=== PATIENT | male | born 1940 | race Caucasian/White ===

== ENCOUNTER 2019-08-18 18:28 | Observation (INO) ==
[2019-08-18] MEDS ORDERED: HYDROmorphone 0.5 MG/0.5 ML SYRINGE IV PRN (18:35)
[2019-08-18] MEDS ORDERED: ONDANSETRON 4 MG/2 ML VIAL IV ONE (18:35)
[2019-08-18] MEDS ORDERED: 0.9 % SODIUM CHLORIDE 1,000 ML IV ONE (18:35)
--- NOTE | 2019-08-18 18:36 | Emergency Department Note ---
Abdominal Pain HPI - General Chief Complaint: Abdominal Pain Stated Complaint: abdominal pain Time Seen by Provider: 08/18/19 18:34 Source: patient Mode of arrival: ambulatory Limitations: no limitations - History of Present Illness HPI Narrative: 79-year-old male with a 4-hour history of right lower quadrant pain that came on about 230 this afternoon. No fever or shortness of breath. It felt like he did have a bowel movement but this did not relieve his pain. He still has his appendix. Pain is severe - Related Data Home Medications Medication Instructions Recorded Confirmed acetaminophen 325 mg tablet 325 mg PO Q6H PRN 04/01/18 03/01/19 blood sugar diagnostic See Dose Instructions .ROUTE 04/01/18 03/01/19 .MEDSUPPLY #10 each losartan 100 1 tab PO QDAY 04/01/18 03/01/19 mg-hydrochlorothiazide 25 mg tablet pen needle, diabetic 32 gauge x See Dose Instructions .ROUTE 04/01/18 03/01/19 5/32" .MEDSUPPLY #10 each pravastatin 20 mg tablet 20 mg PO QDAY 04/01/18 03/01/19 insulin glargine 100 unit/mL (3 18 unit SUB-Q QPM ml 08/24/18 03/01/19 mL) subcutaneous pen Previous Rx's Medication Instructions Recorded sildenafil 100 mg tablet 100 mg PO ONCE #7 tab 04/15/18 oxybutynin chloride 5 mg tablet 5 mg PO .Nightly #90 tab 03/01/19 tamsulosin 0.4 mg capsule 0.4 mg PO QDAY #90 cap 03/01/19 Allergies Allergy/AdvReac Type Severity Reaction Status Date / Time No Known Drug Allergies Allergy Verified 08/18/19 18:31 Review of Systems All systems ED: reviewed and negative except as stated. Abdominal Pain PMH - Past Medical History Attestation: Yes: The following information was validated with the patient. [facility] Narrative: Family History (Last Reviewed 03/01/19 @ 13:10 by Nancy Stringer RN) Son Alcohol abuse Mother Cerebrovascular accident (CVA) Hypothyroidism Grandmother Cerebrovascular accident (CVA) Medical History (Last Reviewed 03/01/19 @ 13:10 by Nancy Stringer RN) Cold intolerance (Chronic) Nocturia (Chronic) High cholesterol (Chronic) Degeneration of lumbar intervertebral disc (Chronic) Psoriasis (Chronic) Peptic ulcer without hemorrhage, perforation, or obstruction (Chronic) Essential hypertension (Chronic) Hyperlipidemia (Chronic) Diabetes mellitus (Chronic) Decreased urine stream (Chronic) Enlarged prostate (Chronic) 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 Normocephalic atraumatic. Conjunctive are clear sclerae white nonicteric. No nasal discharge or congestion. Oropharynx pink and moist. Neck is supple without lymphadenopathy or thyromegaly. Heart is regular rate and rhythm no murmur appreciated. Lungs clear to auscultation bilaterally without wheezes rales rhonchi or respiratory distress. Abdomen is soft tender in the right lower quadrant at McBurney's point. Mildly distended. No guarding. No pedal edema. Alert oriented Limitations: no limitations Course Vital Signs Temperature 98.0 F 08/18/19 18:28 Temperature 98.0 F 08/18/19 18:28 Pulse Rate 64 08/18/19 20:22 Blood Pressure 148/73 08/18/19 20:22 Pulse Oximetry (%) 92 08/18/19 20:22 Abdominal Pain - Lab Data Lab results reviewed: Yes I reviewed the patient's lab results. Result diagrams: 08/18/19 18:44 08/18/19 18:44 Lab Results 08/18/19 08/18/19 08/18/19 Range/Units 18:44 18:44 18:44 WBC 12.7 H (4.50-11.00) K/mcL RBC 4.47 L (4.63-6.08) M/mcL Hgb 13.6 L (13.7-17.5) g/dL Hct 40.1 (40.1-51.0) % POC Hct 41.0 (41.0-55.0) % MCV 89.7 (80.0-100.0) fL MCH 30.4 (26.0-34.0) pg MCHC 33.9 (31.0-36.0) g/dL RDW 13.0 (11.5-14.5) % Plt Count 264 (140-440) K/mcL MPV 10.4 (7.4-10.4) fL Gran % 82.8 H (38.0-78.0) % Lymph % (Auto) 10.8 L (15.5-49.0) % [place] % (Auto) 4.9 (1.0-12.0) % Eos % (Auto) 1.1 (0.0-7.0) % Baso % (Auto) 0.4 (0.0-2.0) % Gran # 10.53 H (1.80-8.00) K/mcL Lymph # (Auto) 1.38 L (1.50-4.80) K/mcL [place] # (Auto) 0.62 (0.10-0.90) K/mcL Eos # (Auto) 0.14 (0.00-0.70) K/mcL Baso # (Auto) 0.05 (0.00-0.30) K/mcL VBG Lactic Acid 1.0 (0.5-2.0) mmol/L POC Sodium 138 (133-145) mmol/L Sodium 136 (133-145) mmol/L POC Potassium 4.3 (3.3-5.1) mmol/L Potassium 4.4 (3.3-5.1) mmol/L POC Chloride 105 (96-108) mmol/L Chloride 99 (96-108) mmol/L Carbon Dioxide 20 L (22-30) mmol/L POC Total CO2 23 (22-30) mmol/L Anion Gap 17.0 H (8-16) POC BUN 31 H (8-23) mg/dl BUN 31 H (8-23) mg/dl Creatinine 1.8 H (0.7-1.2) mg/dl POC Creatinine 2.0 H (0.7-1.2) mg/dl GFR Calculation 35 Glucose 172 H (70-105) mg/dL POC Glucose 173 H (70-105) mg/dL Calcium 9.4 (8.6-10.4) mg/dl POC WB Ioniz Calcium 1.15 L (1.16-1.32) mmol/L Total Bilirubin 0.2 (0.0-1.0) mg/dL AST 22 (0-37) U/l ALT 19 (0-40) U/l Alkaline Phosphatase 56 (39-117) U/L Total Protein 7.3 (5.9-8.4) gm/dL Albumin 4.4 (3.2-5.2) gm/dL Globulin 2.9 (2.2-3.7) gm/dL Albumin/Globulin Ratio 1.5 (1.0-2.3) Lipase 21 (7-60) U/L - Radiology Data Radiology results reviewed: Yes I reviewed the patient's radiology results. CT scan showed mild to moderate right hydroureter with perinephric stranding. There is a 7 x 4 mm proximal ureteral stone as well as bilateral nephro lithiasis. His appendix shows fecal reflux but no stranding to indicate inflammation Disposition Pt seen by [employer]/PA only: No Clinical Impression: Ureterolithiasis, Pyelonephritis Summary: Concern for appendicitis versus diverticulitis versus other intra-abdominal pathology. Ordered CT scan and laboratory. Start IV fluids Dilaudid and Zofran. POC creatinine was too high and we had to change his CT scan of the abdomen pelvis with contrast to without contrast His creatinine went from 1.2 at baseline to 1.8. He does have a leukocytosis of 12. CT scan of the abdomen pelvis without contrast shows pyelonephritis with perinephric stranding on the right as well as ureteral lithiasis which is likely the cause. This is relatively large at 7 x 4 mm. He is afebrile but still uncomfortable despite getting Dilaudid I discussed the case with Dr. Deon Evans, the patient's urologist whom he sees for prostate-I also discussed the results of studies with the patient. B ecause of this large ureteral stone with acute renal failure/pyelonephritis and difficulty to control his pain I do think that he will require admission and procedural intervention. Dr. Evans agreed and asked me to go ahead and write holding orders and he would plan on intervening on the patient's behalf first thing in the morning. So I wrote transition orders on behalf of Dr. Evans including 500 mg of Levaquin as a one-time dose. Patient will be admitted to Dr. Evans Disposition: Xfer As Inpt ([facility]) Condition: Fair Referrals: Ryan Chavez PA-C [Primary Care Provider] - Deon Evans MD [Physician] -
[2019-08-18 18:53] LABS: POC Blood Urea Nitrogen 31 mg/dl (8-23); POC CO2 23 mmol/L (22-30); POC Calcium, Ionized 1.15 mmol/L (1.16-1.32); POC Chloride 105 mmol/L (96-108); POC Glucose, Random 173 mg/dL (70-105); POC Potassium 4.3 mmol/L (3.3-5.1); POC Sodium 138 mmol/L (133-145)
[2019-08-18] MEDS: HYDROmorphone* 2 MG/ML VIAL IV PRN ×3 (19:18→20:55)
[2019-08-18 19:29] LABS: Basophils # (Auto) 0.05 K/mcL (0.00-0.30); Basophils % (Auto) 0.4 % (0.0-2.0); Eosinophils # (Auto) 0.14 K/mcL (0.00-0.70); Eosinophils % (Auto) 1.1 % (0.0-7.0); Granulocytes % (Auto) 82.8 % (38.0-78.0); Hematocrit 40.1 % (40.1-51.0); Hemoglobin 13.6 g/dL (13.7-17.5); Lymphocytes # (Auto) 1.38 K/mcL (1.50-4.80); Lymphocytes % (Auto) 10.8 % (15.5-49.0); Mean Cell Volume 89.7 fL (80.0-100.0); Mean Corpuscular HGB Conc 33.9 g/dL (31.0-36.0); Mean Platelet Volume 10.4 fL (7.4-10.4); Monocytes # (Auto) 0.62 K/mcL (0.10-0.90); Monocytes % (Auto) 4.9 % (1.0-12.0); Platelet Count 264 K/mcL (140-440); RBC 4.47 M/mcL (4.63-6.08); WBC 12.7 K/mcL (4.50-11.00)
[2019-08-18 19:50] LABS: ALT/SGPT 19 U/l (0-40); AST/SGOT 22 U/l (0-37); Albumin 4.4 gm/dL (3.2-5.2); Albumin/Globulin Ratio 1.5 (1.0-2.3); Alkaline Phosphatase 56 U/L (39-117); Bilirubin,Total 0.2 mg/dL (0.0-1.0); Blood Urea Nitrogen 31 mg/dl (8-23); Calcium 9.4 mg/dl (8.6-10.4); Carbon Dioxide 20 mmol/L (22-30); Chloride 99 mmol/L (96-108); Globulin 2.9 gm/dL (2.2-3.7); Glomerular Filtration Rate 35; Glucose 172 mg/dL (70-105)
[2019-08-18] MEDS ORDERED: NALOXONE HCL 0.4 MG/ML VIAL IV PRN (20:24)
[2019-08-18] MEDS ORDERED: LEVOFLOXACIN 500 MG/100 ML BAG IV ONE (20:24)
[2019-08-18] MEDS ORDERED: PROMETHAZINE 25 MG/ML VIAL IM PRN (20:24)
[2019-08-18] MEDS ORDERED: INSULIN GLARGINE, HUMAN 1 UNIT/0.01 ML SQ ONE (20:33)
[2019-08-18] MEDS ORDERED: DEXTROSE 31 GM ORAL.SUSP PO PRN (22:02)
[2019-08-18] MEDS ORDERED: DEXTROSE 50% 50 ML VIAL IV PRN (22:02)
[2019-08-18] MEDS: 0.9 % SODIUM CHLORIDE 1,000 ML IV SCH (22:28)
[2019-08-18] MEDS: INSULIN LISPRO 1 UNIT/0.01 ML UNIT SQ SCH (22:53)
[2019-08-18] MEDS: ONDANSETRON 4 MG/2 ML VIAL IV PRN (23:19)
[2019-08-19] MEDS: ONDANSETRON 4 MG/2 ML VIAL IV PRN ×2 (03:12→08:30)
[2019-08-19 06:46] LABS: Basophils # (Auto) 0.05 K/mcL (0.00-0.30); Basophils % (Auto) 0.3 % (0.0-2.0); Eosinophils # (Auto) 0.01 K/mcL (0.00-0.70); Eosinophils % (Auto) 0.1 % (0.0-7.0); Granulocytes % (Auto) 83.5 % (38.0-78.0); Hematocrit 39.7 % (40.1-51.0); Lymphocytes # (Auto) 1.27 K/mcL (1.50-4.80); Lymphocytes % (Auto) 7.7 % (15.5-49.0); Mean Cell Volume 90.8 fL (80.0-100.0); Mean Corpuscular HGB Conc 32.7 g/dL (31.0-36.0); Mean Platelet Volume 10.4 fL (7.4-10.4); Monocytes # (Auto) 1.39 K/mcL (0.10-0.90); Monocytes % (Auto) 8.4 % (1.0-12.0); Platelet Count 279 K/mcL (140-440); RBC 4.37 M/mcL (4.63-6.08); WBC 16.5 K/mcL (4.50-11.00)
[2019-08-19 06:52] LABS: ALT/SGPT 16 U/l (0-40); AST/SGOT 27 U/l (0-37); Albumin/Globulin Ratio 1.5 (1.0-2.3); Alkaline Phosphatase 42 U/L (39-117); Bilirubin,Total 0.3 mg/dL (0.0-1.0); Blood Urea Nitrogen 28 mg/dl (8-23); Calcium 8.7 mg/dl (8.6-10.4); Carbon Dioxide 24 mmol/L (22-30); Chloride 100 mmol/L (96-108); Globulin 2.6 gm/dL (2.2-3.7); Glomerular Filtration Rate 27; Glucose 149 mg/dL (70-105)
--- NOTE | 2019-08-19 07:08 | Cat Scan Report ---
CLINICAL INFORMATION: Right lower quadrant pain COMPARISON: None. TECHNIQUE: 0.625 mm helical slices were obtained from the mid heart through the subtrochanteric regions. Following reconstruction, 2.5 mm sagittal, coronal and axial reformatted images were processed and reviewed at bone and soft tissue windows.The exam was performed using radiation dose optimization techniques including, but not limited to, automated exposure control, adjustment of the mA and/or kV according to patient size and use of iterative reconstruction technique. FINDINGS: A 4 x 3 mm bilobed stone in the mid right ureter results in mild right hydroureter/hydronephrosis and perinephric edema. A few tiny nonobstructing stones within the calyces of both kidneys. Scattered simple cysts also appreciated: 17 mm anterior cortex superior pole right kidney and 2.3 cm mid left kidney. The left upper collecting system, ureter and urinary bladder are unremarkable. Prostate is mildly enlarged with slight asymmetric prominence the right peripheral zone Lung bases show subsegmental atelectasis no effusion. Small hiatal hernia appreciated. The visualized heart is normal in size Abdominal images show the noncontrasted gallbladder and bile ducts, liver, both adrenal glands, spleen, pancreas are normal in size configuration and attenuation without focal lesion. The aorta is riddled with fibrofatty calcific plaque. The lack in the left common iliac origin is suggestive of significant stenosis in this region, but this cannot be spine without IV contrast. There is no free air, free fluid or adenopathy. Scattered sigmoid diverticula appreciated, but no evidence of diverticulitis. The remaining colon, appendix, small bowel and stomach are normal. The bone windows show no focal osseous abnormality IMPRESSION: 1. 4 mm stone in the mid right ureter resulting in mild right hydroureter/hydronephrosis. Few small punctate nonobstructing stones in the calyces of both kidneys. 2. Heavy atherotic plaque in the abdominal aorta and branches. Possible stenosis of the left common iliac artery please correlate asymmetric femoral pulses and left leg claudication. 3. 2.3 cm simple cyst mid left kidney and 1.7 cm simple cyst anterior cortex superior pole right kidney. 4. Small hiatal hernia Interpreted and Authenticated by: Keith Mazariegos 08/19/19
[2019-08-19] MEDS ORDERED: ceFAZolin 2 GM in DEXTROSE 5% IN WATER 50 ML IV SCH (07:30)
--- NOTE | 2019-08-19 07:34 | History and Physical Report ---
DATE OF ADMISSION: 08/18/2019 HISTORY OF PRESENT ILLNESS: The patient is a 79-year-old gentleman who came into the hospital yesterday with severe right flank pain. He denied fevers or chills but felt constipated and also felt urgency and frequency of urination. I have seen him in the past in the office for frequency and urgency. He is on Flomax and oxybutynin. A CT scan was obtained which showed a right-sided ureteral stone. This is mid ureter approximately 7 mm in size. He had bumped his creatinine and his white count also had increased. He is diabetic. He presents now for evaluation. ALLERGIES: None. CURRENT MEDICATIONS: 1. Viagra. 2. Oxybutynin. 3. Tamsulosin. PAST MEDICAL HISTORY: Significant for diabetes, hypertension, hyperlipidemia, nocturia. FAMILY HISTORY: CVA. PAST SURGICAL HISTORY: Adenoidectomy and tonsillectomy. SOCIAL HISTORY: Does not smoke, does not drink. REVIEW OF SYSTEMS: CARDIAC: Denies any chest pain. RESPIRATORY: No wheezing, coughing, or asthma. PSYCHOLOGICAL: No depression or mood swings. The rest of a 12-point review of systems is negative. PHYSICAL EXAMINATION: GENERAL: This is a pleasant gentleman in slight distress. VITAL SIGNS: As listed per intake notes. HEENT: Atraumatic, normocephalic. Extraocular movements are intact. Pupils equal, reactive to light and accommodation. NECK: Supple. Trachea is in the midline. HEART: Regular rate and rhythm. LUNGS: Clear to auscultation. ABDOMEN: Soft, obese, right flank tenderness which extends down to the groin. GENITOURINARY: Scrotum without lesion. No hydrocele, no varicocele. Testicles are in their normal position, normal size and consistency. No hernias are appreciated. Meatus is at the end of his penis. Penis is circumcised without plaques. EXTREMITIES: Without clubbing, cyanosis or edema. NEUROLOGIC: Cranial nerves II-XII intact. IMPRESSION: The patient with a midright ureteral stone who is having pain. He has also increased his creatinine. PLAN: I have talked to him about the options and we will schedule him for surgery today. I have gone over the procedure with him and options including ureteroscopy, watchful waiting, and open nephrolithotomy, and he understands. A full PARQ discussion was held and we will plan to follow up at surgery. He will receive preoperative antibiotics. [email or web address] Job ID: [id number] Doc ID: [id number] Deon Evans MD
[2019-08-19] MEDS: INSULIN LISPRO 1 UNIT/0.01 ML UNIT SQ SCH ×2 (08:30→11:30)
[2019-08-19] MEDS: 0.9 % SODIUM CHLORIDE 1,000 ML IV SCH (10:23)
[2019-08-19] MEDS ORDERED: LACTATED RINGERS 250 ML IV PRN (10:25)
[2019-08-19] MEDS ORDERED: BENZOCAINE/MENTHOL 1 LOZENGE PO PRN (10:25)
[2019-08-19] MEDS ORDERED: IPRATROPIUM/ALBUTEROL 3 ML AMPUL.NEB NEB PRN (10:25)
[2019-08-19] MEDS ORDERED: MEPERIDINE 25 MG/ML SYRINGE IV PRN (10:25)
[2019-08-19] MEDS ORDERED: FLUMAZENIL 0.1 MG/ML ML IV PRN (10:25)
[2019-08-19] MEDS ORDERED: METOPROLOL TARTRATE 5 MG/5 ML VIAL IV PRN (10:25)
[2019-08-19] MEDS ORDERED: NALOXONE HCL 0.4 MG/ML VIAL IV PRN (10:25)
[2019-08-19] MEDS ORDERED: LABETALOL 5 MG/ML ML IV PRN (10:25)
[2019-08-19] MEDS ORDERED: METHOCARBAMOL 1,000 MG/10 ML VIAL IV PRN (10:25)
[2019-08-19] MEDS ORDERED: ACETAMINOPHEN 1,000 MG/100 ML BOTTLE IV ONE (10:25)
[2019-08-19] MEDS ORDERED: fentaNYL 100 MCG/2 ML VIAL IV PRN (10:25)
[2019-08-19] MEDS ORDERED: LACTATED RINGERS 1,000 ML IV SCH (10:30)
[2019-08-19] MEDS ORDERED: LIDOCAINE HCL/PF 100 MG/5 ML SYRINGE IV ONE (10:42)
[2019-08-19] MEDS ORDERED: PROPOFOL 200 MG/20 ML VIAL IV ONE (10:42)
[2019-08-19] MEDS ORDERED: HYDROmorphone 1 MG/ML SYRINGE ONE (10:42)
[2019-08-19] MEDS ORDERED: fentaNYL 100 MCG/2 ML VIAL IV ONE (10:42)
[2019-08-19] MEDS ORDERED: DEXAMETHASONE 10 MG/ML VIAL ONE (10:42)
[2019-08-19] MEDS ORDERED: PROMETHAZINE 25 MG/ML VIAL ONE (10:42)
[2019-08-19] MEDS ORDERED: GLYCOPYRROLATE 0.2 MG/ML VIAL IV ONE (10:42)
[2019-08-19] MEDS ORDERED: ONDANSETRON 4 MG/2 ML VIAL ONE (10:42)
[2019-08-19] MEDS ORDERED: KETAMINE 10 MG/ML ML ONE (10:42)
[2019-08-19] MEDS ORDERED: FAMOTIDINE/PF 20 MG/2 ML VIAL IV ONE (10:42)
[2019-08-19] MEDS ORDERED: IOHEXOL 300 10 ML VIAL IV ONE (11:04)
[2019-08-19] MEDS ORDERED: HYDROmorphone 1 MG/ML SYRINGE IV PRN (11:16)
[2019-08-19] MEDS ORDERED: oxyCODONE/APAP 5/325MG TABLET PO PRN (11:16)
[2019-08-19] MEDS ORDERED: ACETAMINOPHEN 325 MG TABLET PO PRN (11:18)
[2019-08-19] MEDS ORDERED: NON FORMULARY MEDICATION 1 DOSE MISCELL (Sildenafil Citrate [Viagra] 100 MG) PO PRN (11:18)
--- NOTE | 2019-08-19 11:22 | Brief Operative Note ---
Date of procedure: 08/19/19 Pre-op diagnosis: right ureteral stone Post-op diagnosis: same Procedure: right ureteroscopy, stent placement Grafts/Implants: Yes (stent) Anesthesia: GLMA Findings: see note Complications: none Surgeon: Deon Evans Specimens Removed/Pathology: none sent Condition: stable Disposition: PACU
--- NOTE | 2019-08-19 11:23 | Discharge Plan ---
Discharge Plan - Patient/Caregiver Discharge Instructions Activity: increase activity as tolerated Diet: Regular Diet Additional Instructions: resume previous meds Prescriptions: Cephalexin [Keflex] 500 mg PO BID #10 cap Transmission Status: Pending to [facility] oxyCODONE/APAP [Percocet 10-325Mg] 1 tab PO Q4-6HP PRN #30 tablet PRN Reason: Pain Level > 6 Transmission Status: Sent to [facility] - Follow up Plan Follow up with: Ryan Chavez PAZitaC [Primary Care Provider] - Deon Evans MD [Physician] - Disposition: Home, Self-Care Prognosis: Good Rehab Potential: Good Overall status at discharge: patient is back to baseline
--- NOTE | 2019-08-19 11:51 | Operative Note ---
DATE OF OPERATION: 08/19/2019 PREOPERATIVE DIAGNOSIS: Right ureteral stone. POSTOPERATIVE DIAGNOSIS: Right ureteral stone. PROCEDURE: Right ureteroscopy and right stent placement. SURGEON: Deon Evans MD INDICATION: The patient is a 79-year-old gentleman who had sudden onset of right flank pain. His creatinine has been up and he does have an obstruction of the right kidney. He presents now for evaluation. PROCEDURE IN DETAIL: The patient was identified and consent was signed. He was given general anesthesia, placed in lithotomy position, prepped and draped in a standard fashion. Cystourethroscopy was performed and showed normal-appearing urethra. He did have a slightly enlarged prostate. Orifices were in their normal position. No tumors or masses were seen. We were able to cannulate the right orifice with a guidewire and passed this up the kidney without difficulty. We then attempted to do a semi-rigid ureteroscopy and had difficulty cannulating the orifice because of spasms. A dual lumen catheter was then placed and that facilitated passage up to the kidney, up to the level of stone. This was at approximately L3. We could not pass by the stone because of spasms and I was afraid of perforation. Therefore, a Super Stiff wire was then placed and a 6 x 26 stent was then placed using the Seldinger technique. This showed a good curl in the kidney and the bladder. The wires were removed. At no time did we perforate the ureter. The decision was made to stop the operation and let the stent cause dilatation of the ureter. His bladder was drained. He was awoken and taken to the recovery room in stable condition. He tolerated the procedure well. [email or web address] Job ID: [id number] Doc ID: [id number] Deon Evans MD
[2019-08-19] MEDS ORDERED: 0.9 % SODIUM CHLORIDE 10 ML SYRINGE IV SCH (14:00)
--- NOTE | 2019-08-19 14:57 | XRay Report ---
CLINICAL INFORMATION: URETEROSCOPY. Four large stone in the mid right ureter on recent CT COMPARISON: Abdomen and pelvic CT 08/18/2019 FINDINGS: Four digital images are submitted from the OR. These show partial opacification of the right upper collecting system. Stone not visualized on these images. A double pigtail ureteral stent was placed IMPRESSION: Placement of double pigtail ureteral stent and probable removal of a 4 mm mid ureteral stone Interpreted and Authenticated by: Keith Mazariegos 08/19/19
[2019-08-19] MEDS ORDERED: OXYBUTYNIN CHLORIDE 5 MG TABLET PO SCH (21:00)
[2019-08-19] MEDS ORDERED: SIMVASTATIN 10 MG TABLET PO SCH (21:00)
[2019-08-19] MEDS ORDERED: INSULIN GLARGINE, HUMAN 1 UNIT/0.01 ML SQ SCH (21:00)
[2019-08-20] MEDS ORDERED: HYDROCHLOROTHIAZIDE 25 MG TABLET PO SCH (09:00)
[2019-08-20] MEDS ORDERED: TAMSULOSIN 0.4 MG CAPSULE PO SCH (09:00)
[2019-08-20] MEDS ORDERED: LOSARTAN 50 MG TABLET PO SCH (09:00)
[2019-08-20] MEDS ORDERED: PNEUMOCOCCAL 23-VAL P-SAC VAC 0.5 ML SYRINGE IM ONE (10:00)
== END 2019-08-19 15:36 | disposition home or self-care (01) ==
LOC: MEDSUR 18:28 → ED 18:28 → MEDSUR 22:14